=== PATIENT | male | born 1950 | race Caucasian/White ===

== ENCOUNTER 2017-04-03 08:25 | Day surgery (SDC) | payer MEDICARE, BC ==
[2017-03-31 17:11] LABS: HEMATOCRIT 48.4 % (42.0-54.0); HEMOGLOBIN 16.5 g/dL (13.5-17.5); MCH 31.1 pg (26.0-34.0); MCHC 34.1 g/dL (31.0-37.0); MCV 91.3 fL (80.0-100.0); MEAN PLATELET VOLUME 11.2 fL (7.4-10.4); RBC 5.3 10x6/uL (4.20-6.10); RDW 13.1 % (11.5-14.5); WBC 6.3 10x3/uL (4.8-10.8)
[~2017-04-03] VITALS: Ht 180.3 cm; Wt 117.9 kg
[2017-04-03] MEDS ORDERED: BAYER CHEWABLE81 MG PO (08:50)
[2017-04-03] MEDS ORDERED: DULERA 200 MCG8.8 GM INH (08:50)
[2017-04-03] MEDS ORDERED: LIPITOR10 MG PO (08:51)
[2017-04-03] MEDS ORDERED: NORVASC2.5 MG PO (08:51)
[2017-04-03] MEDS ORDERED: AMOXICILLIN500 M1 (08:53)
[2017-04-03 09:29] VITALS: BP 159/83; Ht 180.3 cm; Wt 117.9 kg
[2017-04-03] MEDS ORDERED: HYDROCODONE-APA1 TAB PO (12:35)
--- NOTE | 2017-04-03 15:16 | NUR ---
1410 AWAKE & ALERT, SITTING UP IN CHAIR. GIVEN DISCHARGE INFORMATION INCLUDING: RX: FOR NORCO 10/325MG, MED REC, RTC APPT., & [facility] OPS DISCHARGE INSTRUCTIONS. PT VOICED UNDERSTANDING. OFFERED ARM SLING. PT. DECLINED. AWAITING FOR TRANSPORTATION HOME.Elina DOS SANTOS R.N. 1420 RELEASED AMBULATORY FROM OPS ESCORTED BY Nataly SZYMANSKI R.N.. HOME WITH , CRI[facility] VO BY PRIVATE CAR. Elina DOS SANTOS R.N.
== END 2017-04-03 14:15 | disposition home or self-care (01) ==
LOC: D.OPS 08:25 → D.PAN 09:45 → D.OPS 10:15 → D.PAN 10:45 → D.OPS 14:15
PROVIDERS: Anesthesiology
DX: M67.431 Ganglion, right wrist (principal); J44.9 Chronic obstructive pulmonary disease, unspecified; I10 Essential (primary) hypertension; Z95.0 Presence of cardiac pacemaker; Z01.812 Encounter for preprocedural laboratory examination

== ENCOUNTER → 2018-12-27 08:00 | Outpatient (CLI) | payer MEDICARE, BC ==
[2017-04-03 09:29] VITALS: BMI 36.3
[~2018-12-27 08:00] MED LIST: AMOXICILLIN500 M1; BAYER CHEWABLE81 MG PO; DULERA 200 MCG8.8 GM INH; HYDROCODONE-APA1 TAB PO; LIPITOR10 MG PO; NORVASC2.5 MG PO
== END | disposition home or self-care (01) ==
LOC: D.HCCARDIO 08:00
PROVIDERS: ATTEND Internal Medicine Cardiovascular Disease
DX: I25.10 Atherosclerotic heart disease of native coronary artery without angina pectoris (principal)

== ENCOUNTER → 2020-01-24 08:08 | Outpatient (CLI) | payer MEDICARE, BC ==
[2017-04-03 09:29] VITALS: BMI 36.3
== END | disposition home or self-care (01) ==
LOC: D.RT 08:08
PROVIDERS: ATTEND Family Medicine
DX: J44.9 Chronic obstructive pulmonary disease, unspecified (principal)